=== PATIENT | male | born 1980 | race Caucasian/White ===

== ENCOUNTER 2021-04-03 08:41 | Inpatient (IN) | payer MEDICARE, OTHER ==
[~2021-04-03] VITALS: Ht 152.4 cm; Wt 112.5 kg
[2021-04-03] VITALS (13 sets, daily range): BP systolic 95–135; BP diastolic 58–78
[2021-04-03] MEDS ORDERED: SODIUM CHLORIDE 0.9% 1000ML 1,000 ML IV SCH ×4 (09:00→11:30)
[2021-04-03 09:55] LABS: BASOPHILS # (AUTO) 0.1 (0.0-0.1); BASOPHILS % 0.3 % (0.0-1.0); HEMATOCRIT 40.9 % (38.2-49.6); HEMOGLOBIN 13.5 g/dL (14.0-18.0); LYMPHOCYTES # (AUTO) 0.5 (1.0-3.2); LYMPHOCYTES % 2.2 % (18.0-39.1); MEAN CORPUSCULAR HEMOGLOBIN 29.3 pg (28-32); MEAN CORPUSCULAR VOLUME 88.7 fL (81-99); MONOCYTES # (AUTO) 0.3 (0.2-0.8); MONOCYTES % 1.3 % (4.4-11.3); NEUTROPHILS # (AUTO) 20.3 (2.1-6.9); NEUTROPHILS % 95.5 % (38.7-80.0); PLATELET COUNT 472 x10e3/uL (140-360); RED BLOOD COUNT 4.61 x10e6/uL (4.3-5.7); RED CELL DISTRIBUTION WIDTH 13.5 % (11.7-14.4)
[2021-04-03 09:58] LABS: CLARITY,URINE TURBID (CLEAR); COLOR,URINE YELLOW (YELLOW)
[2021-04-03 09:59] LABS: KETONES,URINE NEGATIVE (NEGATIVE); LEUKOCYTE ESTERASE ,URINE LARGE (NEGATIVE); NITRITE,URINE NEGATIVE (NEGATIVE); PROTEIN,URINE DIPSTICK 2+ (NEGATIVE); URINE UROBILINOGEN 0.2 mg/dL (0.2 - 1)
[2021-04-03] MEDS ORDERED: ACETAMINOPHEN 325 MG TAB PO ONE (10:00)
[2021-04-03 10:13] LABS: ALBUMIN 3.1 g/dL (3.5-5.0); ALBUMIN/GLOBULIN RATIO 0.7 (0.8-2.0); CALCIUM 9.1 mg/dL (8.4-10.2); CREATININE, SERUM 1.14 mg/dL (0.72-1.25)
[2021-04-03] MEDS: PIPERACILLIN/TAZO 4.5 GM 100 ML IV SCH ×2 (10:18→22:03)
[2021-04-03 10:19] LABS: BACTERIA,URINE MANY /HPF; EPITHELIAL CELLS,URINE FEW /LPF; WBC,URINE (MAN) >50 /HPF (0-5)
[2021-04-03] MEDS ORDERED: IOPAMIDOL 370 MG/ML 200 ML INFUS..BTL INJ ONE (11:12)
[2021-04-03] MEDS ORDERED: SODIUM CHLORIDE 0.9% 50ML 50 ML ONE (11:12)
[2021-04-03] MEDS: Vancomycin IV 1 GM in SODIUM CHLORIDE 0.9% 250ML 250 ML IV SCH ×2 (11:23→23:09)
[2021-04-03] MEDS ORDERED: ONDANSETRON HCL INJ 2MG/ML 2ML 2 MG/ML VIAL IV PRN (11:30)
[2021-04-03] MEDS: SODIUM CHLORIDE 0.9% 1000ML 1,000 ML IV SCH ×3 (13:25→20:39)
[2021-04-03] MEDS ORDERED: AMLODIPINE BESYL5 MG PO (14:58)
[2021-04-03] MEDS ORDERED: LISINOPRIL10 MG PO (14:58)
[2021-04-03] MEDS ORDERED: VITAMIN C500 MG PO (14:59)
[2021-04-03] MEDS ORDERED: ZINC50 M2 (15:01)
[2021-04-03] MEDS ORDERED: COQ-10100 MG (15:02)
[2021-04-03] MEDS ORDERED: VITAMIN D350 MCG (15:04)
[2021-04-03] MEDS ORDERED: MAGNESIUM OXID400 MG PO (15:05)
[2021-04-03] MEDS ORDERED: OMEGA 3 1,0001 EACH PO (15:06)
[2021-04-03] MEDS ORDERED: MULTI-VITAMIN1 EACH PO (15:07)
[2021-04-03] MEDS ORDERED: SODIUM CHLORIDE 0.9% 100 ML ONE (22:09)
[2021-04-04] VITALS (23 sets, daily range): BP systolic 114–162; BP diastolic 65–96
[2021-04-04] MEDS: SODIUM CHLORIDE 0.9% 1000ML 1,000 ML IV SCH (04:32)
[2021-04-04 04:49] LABS: BASOPHILS % 0.4 % (0.0-1.0); EOSINOPHILS # (AUTO) 0.1 (0.0-0.4); EOSINOPHILS % 0.5 % (0.0-6.0); HEMATOCRIT 34.5 % (38.2-49.6); HEMOGLOBIN 11.1 g/dL (14.0-18.0); LYMPHOCYTES # (AUTO) 0.8 (1.0-3.2); LYMPHOCYTES % 7.9 % (18.0-39.1); MEAN CORPUSCULAR HEMOGLOBIN 29.3 pg (28-32); MEAN CORPUSCULAR HGB CONC 32.2 g/dL (31-35); MONOCYTES # (AUTO) 0.7 (0.2-0.8); MONOCYTES % 6.5 % (4.4-11.3); NEUTROPHILS # (AUTO) 8.4 (2.1-6.9); NEUTROPHILS % 84.2 % (38.7-80.0); PLATELET COUNT 342 x10e3/uL (140-360); RED BLOOD COUNT 3.79 x10e6/uL (4.3-5.7)
[2021-04-04 05:10] LABS: ALBUMIN 2.5 g/dL (3.5-5.0); ALBUMIN/GLOBULIN RATIO 0.7 (0.8-2.0); ANION GAP 15.9 mmol/L (8-16); CREATININE, SERUM 0.76 mg/dL (0.72-1.25); POTASSIUM 3.9 mmol/L (3.5-5.1)
[2021-04-04] MEDS: ACETAMINOPHEN 325 MG TAB PO PRN ×2 (05:51→15:43)
[2021-04-04] MEDS ORDERED: LACTATED RINGER'S 1,000 ML INJ ONE (09:45)
[2021-04-04] MEDS: PIPERACILLIN/TAZO 4.5 GM 100 ML IV SCH ×2 (10:43→21:44)
[2021-04-04] MEDS: Vancomycin IV 1 GM in SODIUM CHLORIDE 0.9% 250ML 250 ML IV SCH ×2 (12:07→23:50)
[2021-04-04] MEDS ORDERED: HYDRALAZINE HCL 20 MG/ML VIAL IV PRN (15:30)
[2021-04-04] MEDS: OMEGA 3 POLYUNSAT FATTY ACIDS 1000 MG SOFTGEL PO SCH (17:05)
[2021-04-05] VITALS (11 sets, daily range): BP systolic 118–138; BP diastolic 74–88
[2021-04-05 05:16] LABS: BASOPHILS % 0.4 % (0.0-1.0); EOSINOPHILS # (AUTO) 0.3 (0.0-0.4); EOSINOPHILS % 3.6 % (0.0-6.0); HEMATOCRIT 31.8 % (38.2-49.6); HEMOGLOBIN 10.3 g/dL (14.0-18.0); LYMPHOCYTES # (AUTO) 1.2 (1.0-3.2); LYMPHOCYTES % 17.2 % (18.0-39.1); MEAN CORPUSCULAR HEMOGLOBIN 29.3 pg (28-32); MEAN CORPUSCULAR HGB CONC 32.4 g/dL (31-35); MEAN CORPUSCULAR VOLUME 90.3 fL (81-99); MONOCYTES # (AUTO) 0.6 (0.2-0.8); MONOCYTES % 8.8 % (4.4-11.3); NEUTROPHILS # (AUTO) 4.8 (2.1-6.9); NEUTROPHILS % 69.4 % (38.7-80.0); PLATELET COUNT 295 x10e3/uL (140-360); RED BLOOD COUNT 3.52 x10e6/uL (4.3-5.7)
[2021-04-05 05:38] LABS: ALBUMIN 2.3 g/dL (3.5-5.0); ALBUMIN/GLOBULIN RATIO 0.6 (0.8-2.0); ANION GAP 11.8 mmol/L (8-16); CALCIUM 8.1 mg/dL (8.4-10.2); CREATININE, SERUM 0.76 mg/dL (0.72-1.25); POTASSIUM 3.8 mmol/L (3.5-5.1)
[2021-04-05] MEDS: COLLAGENASE 5 GM TUBE TOP SCH (09:00)
[2021-04-05] MEDS: MAGNESIUM OXIDE 400 MG TAB PO SCH ×2 (09:00→09:15)
[2021-04-05] MEDS: OMEGA 3 POLYUNSAT FATTY ACIDS 1000 MG SOFTGEL PO SCH ×2 (09:18→17:00)
[2021-04-05] MEDS: MULTIVITAMINS/MINERALS TAB PO SCH (09:18)
[2021-04-05] MEDS: AMLODIPINE BESYLATE 5 MG TAB PO SCH (09:18)
[2021-04-05] MEDS: LISINOPRIL 10 MG TAB PO SCH (09:25)
[2021-04-05] MEDS: ASCORBIC ACID 500 MG TAB PO SCH (09:25)
[2021-04-05] MEDS: PIPERACILLIN/TAZO 4.5 GM 100 ML IV SCH ×2 (10:16→22:08)
[2021-04-05] MEDS ORDERED: VITAMIN D350 MCG PO (10:18)
[2021-04-05] MEDS: Vancomycin IV 1 GM in SODIUM CHLORIDE 0.9% 250ML 250 ML IV SCH ×2 (11:15→22:08)
[2021-04-05] MEDS ORDERED: ONDANSETRON HCL 4 MG ORAL DISINTEGRATING TAB PO PRN (16:30)
[2021-04-05] MEDS ORDERED: SODIUM CHLORIDE 0.9% 250ML 250 ML ONE (22:45)
[2021-04-06] VITALS (8 sets, daily range): BP systolic 114–162; BP diastolic 68–100
[2021-04-06] MEDS: LISINOPRIL 10 MG TAB PO SCH (08:25)
[2021-04-06] MEDS: MAGNESIUM OXIDE 400 MG TAB PO SCH (08:25)
[2021-04-06] MEDS: AMLODIPINE BESYLATE 5 MG TAB PO SCH (08:25)
[2021-04-06] MEDS: ASCORBIC ACID 500 MG TAB PO SCH (08:25)
[2021-04-06] MEDS: MULTIVITAMINS/MINERALS TAB PO SCH (08:25)
[2021-04-06] MEDS: OMEGA 3 POLYUNSAT FATTY ACIDS 1000 MG SOFTGEL PO SCH ×2 (08:25→17:46)
[2021-04-06] MEDS: CHOLECALCIFEROL 1,000 UNIT TAB PO SCH (08:25)
[2021-04-06] MEDS: COLLAGENASE 5 GM TUBE TOP SCH (09:02)
[2021-04-06] MEDS: PIPERACILLIN/TAZO 4.5 GM 100 ML IV SCH ×2 (10:08→21:40)
[2021-04-06] MEDS: Vancomycin IV 1 GM in SODIUM CHLORIDE 0.9% 250ML 250 ML IV SCH ×2 (11:30→23:31)
[2021-04-07] VITALS (8 sets, daily range): BP systolic 122–147; BP diastolic 74–97
[2021-04-07 06:11] LABS: BASOPHILS % 0.4 % (0.0-1.0); EOSINOPHILS # (AUTO) 0.3 (0.0-0.4); EOSINOPHILS % 4.1 % (0.0-6.0); HEMATOCRIT 31.4 % (38.2-49.6); HEMOGLOBIN 10.4 g/dL (14.0-18.0); LYMPHOCYTES # (AUTO) 1.7 (1.0-3.2); LYMPHOCYTES % 21.1 % (18.0-39.1); MEAN CORPUSCULAR HEMOGLOBIN 29.3 pg (28-32); MEAN CORPUSCULAR HGB CONC 33.1 g/dL (31-35); MEAN CORPUSCULAR VOLUME 88.5 fL (81-99); MONOCYTES # (AUTO) 0.6 (0.2-0.8); NEUTROPHILS # (AUTO) 5.3 (2.1-6.9); NEUTROPHILS % 66.6 % (38.7-80.0); PLATELET COUNT 340 x10e3/uL (140-360); RED BLOOD COUNT 3.55 x10e6/uL (4.3-5.7); RED CELL DISTRIBUTION WIDTH 13.8 % (11.7-14.4)
[2021-04-07 06:33] LABS: ALBUMIN 2.5 g/dL (3.5-5.0); ALBUMIN/GLOBULIN RATIO 0.6 (0.8-2.0); ANION GAP 13.7 mmol/L (8-16); CALCIUM 8.4 mg/dL (8.4-10.2); CREATININE, SERUM 0.7 mg/dL (0.72-1.25); POTASSIUM 3.7 mmol/L (3.5-5.1)
[2021-04-07 07:01] LABS: FERRITIN 492.77 ng/mL (21.81-274.66)
[2021-04-07] MEDS: CHOLECALCIFEROL 1,000 UNIT TAB PO SCH (09:10)
[2021-04-07] MEDS: LISINOPRIL 10 MG TAB PO SCH (09:10)
[2021-04-07] MEDS: AMLODIPINE BESYLATE 5 MG TAB PO SCH (09:10)
[2021-04-07] MEDS: MAGNESIUM OXIDE 400 MG TAB PO SCH (09:10)
[2021-04-07] MEDS: MULTIVITAMINS/MINERALS TAB PO SCH (09:10)
[2021-04-07] MEDS: ASCORBIC ACID 500 MG TAB PO SCH (09:10)
[2021-04-07] MEDS: OMEGA 3 POLYUNSAT FATTY ACIDS 1000 MG SOFTGEL PO SCH ×2 (09:10→16:49)
[2021-04-07] MEDS: COLLAGENASE 5 GM TUBE TOP SCH (09:11)
[2021-04-07] MEDS: PIPERACILLIN/TAZO 4.5 GM 100 ML IV SCH (10:00)
[2021-04-07] MEDS: ACETAMINOPHEN 325 MG TAB PO PRN (12:20)
[2021-04-07] MEDS: Vancomycin IV 1 GM in SODIUM CHLORIDE 0.9% 250ML 250 ML IV SCH ×2 (12:42→22:13)
[2021-04-08] VITALS (8 sets, daily range): BP systolic 110–155; BP diastolic 73–93
[2021-04-08 07:47] LABS: BASOPHILS # (AUTO) 0.1 (0.0-0.1); BASOPHILS % 0.6 % (0.0-1.0); EOSINOPHILS # (AUTO) 0.7 (0.0-0.4); HEMATOCRIT 35.8 % (38.2-49.6); HEMOGLOBIN 11.4 g/dL (14.0-18.0); LYMPHOCYTES # (AUTO) 2.4 (1.0-3.2); LYMPHOCYTES % 24.4 % (18.0-39.1); MEAN CORPUSCULAR HEMOGLOBIN 28.9 pg (28-32); MEAN CORPUSCULAR HGB CONC 31.8 g/dL (31-35); MEAN CORPUSCULAR VOLUME 90.6 fL (81-99); MONOCYTES # (AUTO) 0.6 (0.2-0.8); MONOCYTES % 6.1 % (4.4-11.3); PLATELET COUNT 343 x10e3/uL (140-360); RED BLOOD COUNT 3.95 x10e6/uL (4.3-5.7); RED CELL DISTRIBUTION WIDTH 13.7 % (11.7-14.4)
[2021-04-08 08:27] LABS: ANION GAP 15.8 mmol/L (8-16); CALCIUM 8.9 mg/dL (8.4-10.2); CREATININE, SERUM 0.68 mg/dL (0.72-1.25); POTASSIUM 3.8 mmol/L (3.5-5.1)
[2021-04-08] MEDS: AMLODIPINE BESYLATE 5 MG TAB PO SCH (09:00)
[2021-04-08] MEDS: CEFTRIAXONE 2 GM in SODIUM CHLORIDE 0.9% 100 ML IV SCH (09:00)
[2021-04-08] MEDS: MAGNESIUM OXIDE 400 MG TAB PO SCH (09:00)
[2021-04-08] MEDS: MULTIVITAMINS/MINERALS TAB PO SCH (09:00)
[2021-04-08] MEDS: OMEGA 3 POLYUNSAT FATTY ACIDS 1000 MG SOFTGEL PO SCH ×2 (09:00→16:46)
[2021-04-08] MEDS: LISINOPRIL 10 MG TAB PO SCH (09:00)
[2021-04-08] MEDS: CHOLECALCIFEROL 1,000 UNIT TAB PO SCH (09:00)
[2021-04-08] MEDS: COLLAGENASE 5 GM TUBE TOP SCH (09:00)
[2021-04-08] MEDS: ASCORBIC ACID 500 MG TAB PO SCH (09:00)
[2021-04-08] MEDS ORDERED: ONDANSETRON ODT4 MG PO (09:52)
[2021-04-08] MEDS: Vancomycin IV 1 GM in SODIUM CHLORIDE 0.9% 250ML 250 ML IV SCH (11:00)
[2021-04-08] MEDS: ACETAMINOPHEN 325 MG TAB PO PRN (15:31)
[2021-04-09] VITALS (7 sets, daily range): BP systolic 110–142; BP diastolic 81–91
[2021-04-09] MEDS: Vancomycin IV 1 GM in SODIUM CHLORIDE 0.9% 250ML 250 ML IV SCH ×3 (00:22→23:00)
[2021-04-09] MEDS ORDERED: Vancomycin IV 1 GM VIAL ONE (00:23)
[2021-04-09] MEDS ORDERED: SODIUM CHLORIDE 0.9% 250ML 250 ML ONE (00:24)
[2021-04-09 07:14] LABS: BASOPHILS # (AUTO) 0.1 (0.0-0.1); BASOPHILS % 0.4 % (0.0-1.0); EOSINOPHILS # (AUTO) 0.7 (0.0-0.4); EOSINOPHILS % 5.5 % (0.0-6.0); HEMATOCRIT 37.9 % (38.2-49.6); HEMOGLOBIN 12.3 g/dL (14.0-18.0); LYMPHOCYTES # (AUTO) 2.8 (1.0-3.2); LYMPHOCYTES % 20.6 % (18.0-39.1); MEAN CORPUSCULAR HEMOGLOBIN 28.8 pg (28-32); MEAN CORPUSCULAR HGB CONC 32.5 g/dL (31-35); MEAN CORPUSCULAR VOLUME 88.8 fL (81-99); MONOCYTES # (AUTO) 0.8 (0.2-0.8); MONOCYTES % 5.8 % (4.4-11.3); NEUTROPHILS # (AUTO) 9.1 (2.1-6.9); NEUTROPHILS % 67.2 % (38.7-80.0); PLATELET COUNT 504 x10e3/uL (140-360); RED BLOOD COUNT 4.27 x10e6/uL (4.3-5.7); RED CELL DISTRIBUTION WIDTH 13.9 % (11.7-14.4)
[2021-04-09 07:31] LABS: ANION GAP 15.3 mmol/L (8-16); CALCIUM 9.5 mg/dL (8.4-10.2); CREATININE, SERUM 0.7 mg/dL (0.72-1.25); POTASSIUM 4.3 mmol/L (3.5-5.1)
[2021-04-09] MEDS: OMEGA 3 POLYUNSAT FATTY ACIDS 1000 MG SOFTGEL PO SCH ×2 (08:42→16:22)
[2021-04-09] MEDS: MULTIVITAMINS/MINERALS TAB PO SCH (08:42)
[2021-04-09] MEDS: MAGNESIUM OXIDE 400 MG TAB PO SCH (08:42)
[2021-04-09] MEDS: CEFTRIAXONE 2 GM in SODIUM CHLORIDE 0.9% 100 ML IV SCH (08:42)
[2021-04-09] MEDS: AMLODIPINE BESYLATE 5 MG TAB PO SCH (08:42)
[2021-04-09] MEDS: CHOLECALCIFEROL 1,000 UNIT TAB PO SCH (08:43)
[2021-04-09] MEDS: ASCORBIC ACID 500 MG TAB PO SCH (08:43)
[2021-04-09] MEDS: LISINOPRIL 10 MG TAB PO SCH (08:43)
[2021-04-09] MEDS: COLLAGENASE 5 GM TUBE TOP SCH (08:43)
[2021-04-09] MEDS: ACETAMINOPHEN 325 MG TAB PO PRN (14:06)
[2021-04-09] MEDS: LACTOBACILLUS ACIDOPHILUS CAPSULE PO SCH (16:22)
[2021-04-10] VITALS (7 sets, daily range): BP systolic 118–146; BP diastolic 77–94
[2021-04-10 06:07] LABS: BASOPHILS # (AUTO) 0.1 (0.0-0.1); BASOPHILS % 0.7 % (0.0-1.0); EOSINOPHILS # (AUTO) 0.7 (0.0-0.4); EOSINOPHILS % 5.3 % (0.0-6.0); HEMATOCRIT 34.9 % (38.2-49.6); HEMOGLOBIN 11.3 g/dL (14.0-18.0); LYMPHOCYTES # (AUTO) 2.7 (1.0-3.2); MEAN CORPUSCULAR HEMOGLOBIN 29.1 pg (28-32); MEAN CORPUSCULAR HGB CONC 32.4 g/dL (31-35); MEAN CORPUSCULAR VOLUME 89.9 fL (81-99); MONOCYTES # (AUTO) 0.9 (0.2-0.8); MONOCYTES % 6.5 % (4.4-11.3); NEUTROPHILS # (AUTO) 9.1 (2.1-6.9); NEUTROPHILS % 66.8 % (38.7-80.0); PLATELET COUNT 548 x10e3/uL (140-360); RED BLOOD COUNT 3.88 x10e6/uL (4.3-5.7); RED CELL DISTRIBUTION WIDTH 13.9 % (11.7-14.4)
[2021-04-10 07:05] LABS: ANION GAP 16.2 mmol/L (8-16); CALCIUM 8.9 mg/dL (8.4-10.2); CREATININE, SERUM 0.76 mg/dL (0.72-1.25); POTASSIUM 4.2 mmol/L (3.5-5.1)
[2021-04-10] MEDS: MAGNESIUM OXIDE 400 MG TAB PO SCH (10:14)
[2021-04-10] MEDS: MULTIVITAMINS/MINERALS TAB PO SCH (10:14)
[2021-04-10] MEDS: CEFTRIAXONE 2 GM in SODIUM CHLORIDE 0.9% 100 ML IV SCH (10:14)
[2021-04-10] MEDS: OMEGA 3 POLYUNSAT FATTY ACIDS 1000 MG SOFTGEL PO SCH (10:17)
[2021-04-10] MEDS: ASCORBIC ACID 500 MG TAB PO SCH (10:17)
[2021-04-10] MEDS: CHOLECALCIFEROL 1,000 UNIT TAB PO SCH (10:17)
[2021-04-10] MEDS: LISINOPRIL 10 MG TAB PO SCH (10:17)
[2021-04-10] MEDS: COLLAGENASE 5 GM TUBE TOP SCH (10:17)
[2021-04-10] MEDS: AMLODIPINE BESYLATE 5 MG TAB PO SCH (10:17)
[2021-04-10] MEDS: LACTOBACILLUS ACIDOPHILUS CAPSULE PO SCH (10:17)
[2021-04-10] MEDS: Vancomycin IV 1 GM in SODIUM CHLORIDE 0.9% 250ML 250 ML IV SCH (12:20)
== END 2021-04-10 17:05 | DRG 853 ==
LOC: ER 08:54 → ERHOLD 11:32 → ICU 14:34 → MED/SURG2 04-05 15:49
PROVIDERS: ADMIT Internal Medicine; ATTEND Internal Medicine
PROC: 02HV33Z Insertion of Infusion Device into Superior Vena Cava, Percutaneous Approach (ICD-10-PCS; 2021-04-03)
PROC: 0KBP0ZZ Excision of Left Hip Muscle, Open Approach (ICD-10-PCS; principal; 2021-04-04)
DX: A40.1 Sepsis due to streptococcus, group B (principal); L89.324 Pressure ulcer of left buttock, stage 4; G82.20 Paraplegia, unspecified; E87.1 Hypo-osmolality and hyponatremia; N39.0 Urinary tract infection, site not specified; E87.2 Acidosis; N17.9 Acute kidney failure, unspecified; Q05.9 Spina bifida, unspecified; E11.9 Type 2 diabetes mellitus without complications; M81.0 Age-related osteoporosis without current pathological fracture; I10 Essential (primary) hypertension; Z88.5 Allergy status to narcotic agent; Z88.2 Allergy status to sulfonamides; Z88.8 Allergy status to other drugs, medicaments and biological substances; Z91.040 Latex allergy status; B95.2 Enterococcus as the cause of diseases classified elsewhere; B95.1 Streptococcus, group B, as the cause of diseases classified elsewhere; D63.8 Anemia in other chronic diseases classified elsewhere; Z20.822 Contact with and (suspected) exposure to COVID-19; Z74.01 Bed confinement status; B96.20 Unspecified Escherichia coli [E. coli] as the cause of diseases classified elsewhere
CPT/HCPCS: 36415; 36569; 51700; 71045; 74177; 80048; 80053; 80202; 81001; 82607; 82728; 82746; 83540; 83605; 84466; 85025; 85045; 87040; 87071; 87086; 87186; 87205; 93005; 97139; 99251; 99285; J0360; J0696; J2543; J3370; J7030; J7050; J7121; Q9967; U0002